=== PATIENT | male | born 1975 | race Caucasian/White ===

== ENCOUNTER → 2021-07-19 | Outpatient (CLI) | payer OTHER ==
--- NOTE | 2021-07-19 15:26 | RAD ---
EXAM: RENAL ULTRASOUND CLINICAL HISTORY: Decreased renal function COMPARISON: None available. TECHNIQUE: Ultrasound examination of the bilateral kidneys and urinary bladder was performed. FINDINGS: The right kidney measures 10.4 x 4.7 x 3.6 cm. The left kidney is 10.1 x 4.9 x 4.6 cm. No evidence of hydronephrosis. The urinary bladder is mildly distended. IMPRESSION: Unremarkable visualized exam. Electronically signed by: Joe Prasad MD (07/19/2021 3:24 PM) [id number]
== END ==
LOC: US 13:29
PROVIDERS: ATTEND Nurse Practitioner Family
DX: N32.89 Other specified disorders of bladder (principal); R94.4 Abnormal results of kidney function studies
CPT/HCPCS: 76770